=== PATIENT | female | born 2000 | race Asian ===

== ENCOUNTER 2022-07-11 01:43 | Emergency (ER) | payer OTHER ==
[2022-07-11 02:31] LABS: Bilirubin Neg (Negative); Blood, Urine 150 (Negative); Clarity Clear (Clear); Glucose, Urine (Dipstick) Normal (Negative); Ketone, Urine Negative (Negative); Leukocyte Negative (Negative); Nitrite Negative (Negative); Protein, Urine (Dipstick) Negative (Neg-Trace); Specific Gravity, Urine 1.015 (1.005-1.030); Urobilinogen Normal mg/dL (Less than 2); pH, Urine 6.5 (5.0-9.0)
[2022-07-11 02:32] LABS: Pregnancy Test - Urine (BHCG) Negative (Negative); Pregu Control Background? CLEAR/WHITE (CLR/WHITE); Pregu Control Bar Appear? YES (CONTROL BAR); Specific Gravity 1.015 (1.002-1.036)
[2022-07-11 02:51] LABS: Bacteria/HPF None Seen HPF (None Seen); Squamous Epithelial 0-3 HPF (0-3); WBC/HPF 0-3 HPF (0-3)
== END 2022-07-11 04:09 | disposition home or self-care (01) ==
LOC: CSHERS 01:43
DX: R10.32 Left lower quadrant pain (principal)
CPT/HCPCS: 76856; 81003; 81015; 81025

== ENCOUNTER 2022-07-21 22:26 | Emergency (ER) | payer OTHER ==
[2022-07-21] MEDS ORDERED: predniSONE 20 MG TAB ONE (22:52)
[2022-07-21] MEDS ORDERED: Famotidine 20 MG TAB ONE (22:52)
== END 2022-07-21 23:50 | disposition home or self-care (01) ==
LOC: CSHERS 22:26
DX: T78.1XXA Other adverse food reactions, not elsewhere classified, initial encounter (principal)
CPT/HCPCS: 99283; J7512